=== PATIENT | female | born 1980 | race Hispanic/Latino ===

== ENCOUNTER 2017-10-15 23:27 | Emergency (ER) | payer MEDICAID, OTHER | END 2017-10-16 01:05 | disposition home or self-care (01) | LOC: EDH 23:27 | DX: K02.9 Dental caries, unspecified (principal) | CPT/HCPCS: 81025 ==

== ENCOUNTER 2017-11-04 05:17 | Emergency (ER) | payer MEDICAID ==
[2017-11-04 05:51] LABS: BASOPHILS % (AUTO) 0.6 % (0.0-5.0); EOSINOPHILS % (AUTO) 1.6 % (0.0-8.0); HEMATOCRIT 33.9 % (36-48); LYMPHOCYTES % (AUTO) 22.5 % (21.0-51.0); MEAN CORPUSCULAR HEMOGLOBIN 25.3 pg (27.0-33.0); MEAN CORPUSCULAR HGB CONC 33.7 g/dL (32.0-36.0); MEAN CORPUSCULAR VOLUME 75.2 fL (79-99); MONOCYTES % (AUTO) 6.4 % (3.0-13.0); NEUTROPHILS % (AUTO) 68.9 % (40.0-77.0); PLATELET COUNT (AUTO) 352 K/uL (130-400); RED BLOOD CELL COUNT(AUTO) 4.51 MIL/uL (4.00-5.50); RED CELL DISTRIBUTION WIDTH 17.5 % (11.0-15.5); WHITE BLOOD COUNT (AUTO) 8.5 K/uL (4.8-10.8)
[2017-11-04] MEDS ORDERED: ACETAMINOPHEN 325 MG TAB ONE (05:51)
[2017-11-04 06:19] LABS: CREATININE 0.8 mg/dL (0.5-1.5)
[2017-11-04 06:57] LABS: ALBUMIN 3.3 g/dL (3.5-5.0); BILIRUBIN,TOTAL 0.2 mg/dL (0.2-1.0); TOTAL PROTEIN, SERUM 7.7 g/dL (6.0-8.3)
[2017-11-04] MEDS ORDERED: MORPHINE SULFATE 4 MG/1ML SYG ONE ×2 (07:33→09:35)
[2017-11-04] MEDS ORDERED: ONDANSETRON HCL 4 MG/2 ML VIAL ONE (09:35)
== END 2017-11-04 10:21 | disposition home or self-care (01) ==
LOC: EDH 05:17
DX: O03.4 Incomplete spontaneous abortion without complication (principal); Z3A.11 11 weeks gestation of pregnancy
CPT/HCPCS: 36415; 76801; 80053; 83690; 84702; 85025; 96374; 96375; 96376; 99285; J2270 ×2; J2405

== ENCOUNTER 2018-09-19 12:00 | Observation (INO) | payer MEDICAID ==
[~2018-09-19] VITALS: Ht 162.6 cm; Wt 107.0 kg
[2018-09-19 13:01] LABS: APPEARANCE,URINE Cloudy (CLEAR); BILIRUBIN,URINE Small (NEGATIVE); GLUCOSE, URINE (UA) Negative (NEGATIVE); KETONES,URINE Trace mg/dL (NEGATIVE); LEUKOCYTE ESTERASE ,URINE Moderate (NEGATIVE); NITRATE,URINE Negative (NEGATIVE); OCCULT BLOOD,URINE Negative (NEGATIVE); PH,URINE 5.5 (5.0-8.0); PROTEIN,URINE POS 1+ mg/dL (NEGATIVE)
[2018-09-19 13:04] LABS: COLOR,URINE Dark Yellow (YELLOW)
[2018-09-19 13:05] LABS: BASOPHILS % (AUTO) 0.6 % (0.0-5.0); EOSINOPHILS % (AUTO) 0.6 % (0.0-8.0); HEMATOCRIT 29.1 % (36-48); LYMPHOCYTES % (AUTO) 15.9 % (21.0-51.0); MEAN CORPUSCULAR HEMOGLOBIN 25.5 pg (27.0-33.0); MEAN CORPUSCULAR HGB CONC 33.2 g/dL (32.0-36.0); MEAN CORPUSCULAR VOLUME 76.8 fL (79-99); MONOCYTES % (AUTO) 6.4 % (3.0-13.0); NEUTROPHILS % (AUTO) 76.5 % (40.0-77.0); NUCLEATED RED BLOOD CELLS 0.1 % (0.0-0.19); PLATELET COUNT (AUTO) 289 K/uL (130-400); RED BLOOD CELL COUNT(AUTO) 3.79 MIL/uL (4.00-5.50); RED CELL DISTRIBUTION WIDTH 18.1 % (11.0-15.5); WHITE BLOOD COUNT (AUTO) 8.3 K/uL (4.8-10.8)
[2018-09-19 13:07] LABS: AMPHET/METH SCREEN,URINE NEGATIVE (NEGATIVE); BARBITURATE SCREEN, URINE NEGATIVE (NEGATIVE); BENZODIAZEPINES SCREEN,URINE NEGATIVE (NEGATIVE); CANNABINOID SCREEN,URINE NEGATIVE (NEGATIVE); COCAINE SCREEN,URINE NEGATIVE (NEGATIVE); OPIATE SCREEN,URINE NEGATIVE (NEGATIVE); PHENCYCLIDINE SCREEN,URINE NEGATIVE (NEGATIVE)
[2018-09-19 13:31] LABS: RBC,URINE None Seen /HPF (0-1)
[2018-09-19 13:32] LABS: BACTERIA,URINE Moderate /HPF (None Seen); MUCUS,URINE Moderate LPF (None Seen); SQUAMOUS EPITHELIAL CELL,UR Moderate /HPF (0-2)
[2018-09-19] MEDS ORDERED: LACTATED RINGERS 1000ML 1,000 ML IV ONE (14:11)
[2018-09-19] MEDS ORDERED: CEFTRIAXONE SODIUM 1 GM IVP ONE (15:15)
[2018-09-20 06:17] LABS: HEPATITIS Bs ANTIGEN SCREEN P Negative (Negative)
[2018-09-20 09:04] LABS: RAPID PLASMA REAGIN NONREACTIVE (NONREACTIVE)
== END 2018-09-19 16:40 | disposition home or self-care (01) ==
LOC: EDH 12:00 → LDH 12:01
PROVIDERS: ADMIT Obstetrics & Gynecology; ATTEND Obstetrics & Gynecology
DX: O21.2 Late vomiting of pregnancy (principal); O26.893 Other specified pregnancy related conditions, third trimester; R10.13 Epigastric pain; R06.02 Shortness of breath; Z3A.35 35 weeks gestation of pregnancy; Z79.899 Other long term (current) drug therapy
CPT/HCPCS: 36415; 76805; 80305; 81001; 82947; 82948; 85025; 86592; 86701; 86850; 86900; 86901; 87088; 87340; 87390; 93005; 96361; 96374; 99284; G0378 ×5; J0696; J7120 ×2

== ENCOUNTER 2019-07-24 09:42 | Emergency (ER) | payer OTHER ==
[2019-07-24 10:20] LABS: APPEARANCE,URINE Clear (CLEAR); BILIRUBIN,URINE Small (NEGATIVE); COLOR,URINE Dark Yellow (YELLOW); GLUCOSE, URINE (UA) Negative (NEGATIVE); KETONES,URINE Trace mg/dL (NEGATIVE); LEUKOCYTE ESTERASE ,URINE Small (NEGATIVE); NITRATE,URINE Negative (NEGATIVE); OCCULT BLOOD,URINE Negative (NEGATIVE); PROTEIN,URINE POS 1+ mg/dL (NEGATIVE)
[2019-07-24 10:31] LABS: CREATININE 0.7 mg/dL (0.5-1.5); POTASSIUM 3.5 mmol/L (3.5-5.1)
[2019-07-24 10:33] LABS: BACTERIA,URINE Few /HPF (None Seen); MUCUS,URINE Many LPF (None Seen); RBC,URINE None Seen /HPF (0-1)
[2019-07-24 10:54] LABS: BASOPHILS % (AUTO) 0.3 % (0.0-5.0); EOSINOPHILS % (AUTO) 1.2 % (0.0-8.0); HEMATOCRIT 29.8 % (36-48); LYMPHOCYTES % (AUTO) 16.6 % (21.0-51.0); MEAN CORPUSCULAR HEMOGLOBIN 27.5 pg (27.0-33.0); MEAN CORPUSCULAR HGB CONC 32.9 g/dL (32.0-36.0); MEAN CORPUSCULAR VOLUME 83.5 fL (79-99); MONOCYTES % (AUTO) 7.4 % (3.0-13.0); NEUTROPHILS % (AUTO) 74.2 % (40.0-77.0); PLATELET COUNT (AUTO) 230 K/uL (130-400); RED BLOOD CELL COUNT(AUTO) 3.57 MIL/uL (4.00-5.50); RED CELL DISTRIBUTION WIDTH 15.1 % (11.0-15.5); WHITE BLOOD COUNT (AUTO) 6.6 K/uL (4.8-10.8)
[2019-07-24 10:57] LABS: ALBUMIN 2.6 g/dL (3.5-5.0); BILIRUBIN,TOTAL 0.3 mg/dL (0.2-1.0); TOTAL PROTEIN, SERUM 7.2 g/dL (6.0-8.3)
== END 2019-07-24 11:19 | disposition home or self-care (01) ==
LOC: EDH 09:42
DX: O29.42 Spinal and epidural anesthesia induced headache during pregnancy, second trimester (principal); O21.9 Vomiting of pregnancy, unspecified; O23.42 Unspecified infection of urinary tract in pregnancy, second trimester; O26.892 Other specified pregnancy related conditions, second trimester; J30.2 Other seasonal allergic rhinitis; Z3A.16 16 weeks gestation of pregnancy; Z98.890 Other specified postprocedural states
CPT/HCPCS: 36415; 76805; 80053; 81001; 84702; 85025; 87804

== ENCOUNTER 2019-12-19 05:28 | Inpatient (IN) | payer MEDICAID ==
[~2019-12-19] VITALS: Ht 162.6 cm; Wt 106.1 kg
[2019-12-19 06:26] LABS: APPEARANCE,URINE CLOUDY (CLEAR); BILIRUBIN,URINE SMALL (NEGATIVE); COLOR,URINE YELLOW (YELLOW); GLUCOSE, URINE (UA) NEGATIVE (NEGATIVE); KETONES,URINE >=80 mg/dL (NEGATIVE); LEUKOCYTE ESTERASE ,URINE SMALL (NEGATIVE); NITRATE,URINE NEGATIVE (NEGATIVE); OCCULT BLOOD,URINE NEGATIVE (NEGATIVE); PH,URINE 7.5 (5.0-8.0); PROTEIN,URINE 100 mg/dL (NEGATIVE)
[2019-12-19 06:28] VITALS: BP 108/78
[2019-12-19] MEDS ORDERED: LACTATED RINGERS 1000ML 1,000 ML IV SCH (06:30)
[2019-12-19] MEDS ORDERED: CALDOLOR 800MG+NS 250ML 250 ML IV PRN (06:30)
[2019-12-19] MEDS ORDERED: CEFAZOLIN SODIUM 1 GM VIAL IVP PRN (06:30)
[2019-12-19 06:50] LABS: BACTERIA,URINE Few /HPF (None Seen)
[2019-12-19 06:51] LABS: MUCUS,URINE Moderate LPF (None Seen); SQUAMOUS EPITHELIAL CELL,UR Moderate /HPF (0-2)
[2019-12-19 07:02] LABS: HEMATOCRIT 28.6 % (36-48); MEAN CORPUSCULAR HGB CONC 30.4 g/dL (32.0-36.0); MEAN CORPUSCULAR VOLUME 78.8 fL (79-99); PLATELET COUNT (AUTO) 232 K/uL (130-400); RED BLOOD CELL COUNT(AUTO) 3.63 MIL/uL (4.00-5.50); RED CELL DISTRIBUTION WIDTH 15.4 % (11.0-15.5); WHITE BLOOD COUNT (AUTO) 4.5 K/uL (4.8-10.8)
[2019-12-19] MEDS ORDERED: AMMONIA 1 EA AMP IH ONE (07:46)
[2019-12-19] MEDS ORDERED: DURAMORPH PF1 MG/ML 10ML AMP IV ONE (07:49)
[2019-12-19] MEDS ORDERED: FENTANYL CITRATE PF 50 MCG/1 ML 2ML VIAL ONE (07:49)
[2019-12-19] MEDS ORDERED: CEFAZOLIN SODIUM 1 GM VIAL IVP ONE (07:55)
[2019-12-19] MEDS ORDERED: ONDANSETRON HCL 4 MG/2 ML VIAL ONE (08:05)
[2019-12-19] MEDS ORDERED: OXYTOCIN 10 USP UNITS/ML ONE (08:05)
[2019-12-19] MEDS ORDERED: PHENYLEPHRINE HCL 10 MG/ML 1ML VIAL IV ONE (08:13)
[2019-12-19] MEDS ORDERED: EPHEDRINE SULFATE 50 MG/ML AMPULE ONE (08:49)
[2019-12-19] MEDS ORDERED: SODIUM CHLORIDE 0.9% 10 ML VIAL ONE (08:50)
[2019-12-19] MEDS ORDERED: MIDAZOLAM HCL 1 MG/ML 2ML VIAL ONE (08:51)
[2019-12-19] MEDS ORDERED: OXYTOCIN-LR 20 UNITS/1000 ML 1,000 ML IV PRN (09:30)
[2019-12-19] MEDS ORDERED: MEPERIDINE-PF 75 MG/ML SYG IM PRN (09:30)
[2019-12-19] MEDS ORDERED: PROMETHAZINE HCL 25 MG/ML 1ML AMPULE IM PRN (09:30)
[2019-12-19] MEDS ORDERED: SODIUM CHLORIDE 0.9% 10 ML VIAL IVP PRN (09:30)
[2019-12-19 12:01] VITALS: BP 104/56
[2019-12-19] MEDS: CALDOLOR 800MG+NS 250ML 250 ML IV SCH (16:53)
[2019-12-19 16:57] VITALS: BP 111/64
[2019-12-19] MEDS ORDERED: DiphenhydrAMINE HCL 50 MG/ML VIAL IVP PRN (17:30)
[2019-12-19] MEDS ORDERED: NALOXONE HCL 0.4 MG/1 ML ML IVP PRN ×3 (17:30)
[2019-12-19] MEDS ORDERED: ONDANSETRON HCL 4 MG/2 ML VIAL IVP PRN (17:30)
[2019-12-19] MEDS ORDERED: EPHEDRINE SULFATE 50 MG/ML AMPULE IVP PRN (17:30)
[2019-12-19 19:30] VITALS: BP 104/54
[2019-12-19] MEDS: DEXTROSE 5 %-0.45 % NACL 1,000 ML IV PRN (22:22)
[2019-12-19 23:30] VITALS: BP 99/57
[2019-12-20] MEDS: CALDOLOR 800MG+NS 250ML 250 ML IV SCH (01:40)
[2019-12-20] MEDS: DIPH,PERTUSS(ACELL),TET VAC/PF 0.5 ML VIAL IM SCH ×2 (01:40→01:50)
[2019-12-20] MEDS: MEASLES/MUMPS/RUBELLA VACCINE, LIVE 0.5 ML/VIAL SQ SCH ×2 (01:42→01:52)
[2019-12-20 04:00] VITALS: BP 101/57
[2019-12-20] MEDS: DEXTROSE 5 %-0.45 % NACL 1,000 ML IV PRN (06:11)
[2019-12-20 06:55] LABS: HEMATOCRIT 25.6 % (36-48); MEAN CORPUSCULAR HEMOGLOBIN 24.9 pg (27.0-33.0); MEAN CORPUSCULAR HGB CONC 31.3 g/dL (32.0-36.0); MEAN CORPUSCULAR VOLUME 79.8 fL (79-99); RED BLOOD CELL COUNT(AUTO) 3.21 MIL/uL (4.00-5.50); RED CELL DISTRIBUTION WIDTH 15.9 % (11.0-15.5); WHITE BLOOD COUNT (AUTO) 7.5 K/uL (4.8-10.8)
--- NOTE | 2019-12-20 06:55 | NUR ---
teddy brito, pt. inst to call for assist before getting out of bed, verbalized understanding. Addendum: 12/20/19 at 07 by NIK MITCHELL RN RN Amended: Links added.
[2019-12-20 07:15] LABS: HEPATITIS Bs ANTIGEN SCREEN P Negative (Negative)
[2019-12-20 07:40] VITALS: BP 97/54
[2019-12-20] MEDS ORDERED: ACETAMINOPHEN EXTRA STRENGTH 500 MG TABLET PO PRN (09:00)
[2019-12-20] MEDS ORDERED: ACETAMINOPHEN-CODEINE 300/30MG TAB PO PRN (09:00)
[2019-12-20] MEDS ORDERED: SIMETHICONE 80 MG TAB.CHEW PO PRN (09:00)
[2019-12-20] MEDS ORDERED: LIDOCAINE 5% TOPICAL PATCH TP SCH (09:00)
[2019-12-20] MEDS ORDERED: DOCUSATE SODIUM 100 MG CAP PO SCH (09:00)
[2019-12-20] MEDS ORDERED: LANOLIN 30GM OINTMENT TP PRN (09:00)
[2019-12-20] MEDS ORDERED: BISACODYL 10 MG SUPP.RECT RC PRN (09:00)
[2019-12-20] MEDS ORDERED: HYDROCODONE/ACETAMINOPHEN 5/325 MG TAB PO PRN (09:00)
[2019-12-20] MEDS ORDERED: IBUPROFEN 800 MG TAB PO SCH (09:30)
[2019-12-20 11:40] VITALS: BP 101/55
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
--- NOTE | 2019-12-20 12:26 | NUR ---
SS CONSULT - HX of ANXIETY SW spoke with patient due to report that patient has hx of anxiety. Patient states she was feeling anxious and claustrophobic about having and tubal. She states she has no issues with anxiety other than everyday worries. Patient lives with spouse and 6 children - ages 17, 15, 12, 6, 3, 1. This is her 7th baby. She is a [id number] mother. Her works at [employer] and makes about $1200 a month. Patient also receives government assistance and $180 weekly in Child Support. Patient lives in apartment and has all utilities in place. She has reliable transportation and reports that all basic needs are met. Patient reports no hx of abuse of any kind and denies substance abuse and any mental health issues. Patient has no open cases with CPS and reports no legal issues pending. Patient is cleared to return home with family. Patient's nurse, Lili, notified. Addendum: 12/20/19 at 1233 by DEAN OLVERA Amended: Links added.
== END 2019-12-20 12:00 | disposition home or self-care (01) | DRG 539 ==
LOC: EDH 05:28 → LDH 05:29 → OBSVTOIN 05:29 → WSH 11:27
PROVIDERS: ADMIT Obstetrics & Gynecology; ATTEND Obstetrics & Gynecology
PROC: 0UB70ZZ Excision of Bilateral Fallopian Tubes, Open Approach (ICD-10-PCS; 2019-12-19)
PROC: 0TNB0ZZ Release Bladder, Open Approach (ICD-10-PCS; 2019-12-19)
PROC: 3E0234Z Introduction of Serum, Toxoid and Vaccine into Muscle, Percutaneous Approach (ICD-10-PCS; 2019-12-19)
PROC: 3E0134Z Introduction of Serum, Toxoid and Vaccine into Subcutaneous Tissue, Percutaneous Approach (ICD-10-PCS; 2019-12-19)
PROC: 10D00Z1 Extraction of Products of Conception, Low, Open Approach (ICD-10-PCS; principal; 2019-12-19 07:30)
DX: O36.8130 Decreased fetal movements, third trimester, not applicable or unspecified (principal); Z3A.39 39 weeks gestation of pregnancy; O69.81X0 Labor and delivery complicated by cord around neck, without compression, not applicable or unspecified; O34.211 Maternal care for low transverse scar from previous cesarean delivery; O34.83 Maternal care for other abnormalities of pelvic organs, third trimester; O99.62 Diseases of the digestive system complicating childbirth; O99.214 Obesity complicating childbirth; Z30.2 Encounter for sterilization; Z37.0 Single live birth; K66.0 Peritoneal adhesions (postprocedural) (postinfection); N83.8 Other noninflammatory disorders of ovary, fallopian tube and broad ligament; E66.9 Obesity, unspecified; K21.9 Gastro-esophageal reflux disease without esophagitis; Z23 Encounter for immunization
CPT/HCPCS: 36415; 59510; 81001; 85027; 86592; 86850; 86900; 86901; 87088; 87340; 88302; 90707; 90715; A4344; G0378; J0690; J1741; J2175; J2250; J2274; J2370; J2405; J2550; J2590; J3010; J3490; J7120

== ENCOUNTER 2020-07-30 12:02 | Emergency (ER) | payer MEDICAID ==
[2020-07-30] MEDS ORDERED: CLINDAMYCIN HCL 150 MG CAP ONE (12:31)
[2020-07-30] MEDS ORDERED: ACETAMINOPHEN-CODEINE 300/30MG TAB ONE (12:31)
== END 2020-07-30 12:56 | disposition home or self-care (01) ==
LOC: EDH 12:02
DX: S02.5XXA Fracture of tooth (traumatic), initial encounter for closed fracture (principal); K08.89 Other specified disorders of teeth and supporting structures; K02.9 Dental caries, unspecified; Z98.890 Other specified postprocedural states; X58.XXXA Exposure to other specified factors, initial encounter; Y93.89 Activity, other specified; Y92.89 Other specified places as the place of occurrence of the external cause; Y99.8 Other external cause status

== ENCOUNTER 2022-10-29 22:00 | Emergency (ER) | payer MEDICAID ==
[~2022-10-29] VITALS: Ht 162.6 cm; Wt 106.8 kg
[2022-10-29 22:04] VITALS: BP 129/86
[2022-10-29] MEDS ORDERED: AMOX1TAB16 PO (22:19)
[2022-10-29] MEDS ORDERED: IBUP-2077 PO (22:19)
[2022-10-29] MEDS ORDERED: KETOROLAC 30MG VIAL (30MG/ML) IM ONE (22:30)
== END 2022-10-29 22:40 | disposition home or self-care (01) ==
LOC: EDH 22:00
DX: S02.5XXA Fracture of tooth (traumatic), initial encounter for closed fracture (principal); K02.9 Dental caries, unspecified; X58.XXXA Exposure to other specified factors, initial encounter; Y93.89 Activity, other specified; Y92.89 Other specified places as the place of occurrence of the external cause; Y99.8 Other external cause status
CPT/HCPCS: 99283; 96372; J1885

== ENCOUNTER 2024-02-29 20:57 | Emergency (ER) | payer SELFPAY ==
[~2024-02-29] VITALS: Ht 162.6 cm; Wt 79.4 kg
[~2024-02-29 20:57] MED LIST: AMOX1TAB16 PO; IBUP-2077 PO
[2024-02-29] MEDS ORDERED: AMOX1TAB16 PO (21:17)
[2024-02-29] MEDS: HYDROcodone/APAP 5/325 1 TAB TABLET PO STA (21:41)
[2024-02-29] MEDS: ketOROlac 15MG/ML VIAL (15MG/ML) IM STA (21:41)
[2024-02-29] MEDS: dexaMETHasone SOD PHOSPHATE 4 MG/ML 1ML VIAL IM STA (21:41)
[2024-02-29] MEDS: LIDOCAINE HCL 2% VISCOUS 15 ML UDCUP PO ONE (22:45)
[2024-02-29] MEDS: LIDOCAINE HCL 2% VISCOUS 15 ML UDCUP ONE (22:46)
[2024-02-29 22:49] VITALS: BP 121/73; PULSE 78; RESP 15; TEMP 98.3; O2SAT 98
== END 2024-02-29 22:50 | disposition home or self-care (01) ==
LOC: EDH 20:57
DX: K08.89 Other specified disorders of teeth and supporting structures (principal)
CPT/HCPCS: 99284; 96372 ×2; J1100; J1885